=== PATIENT | female | born 1995 | race Caucasian/White ===

== ENCOUNTER 2017-09-20 08:53 | Emergency (ER) | payer OTHER, SELFPAY | END 2017-09-20 10:27 | disposition home or self-care (01) | PROVIDERS: Emergency Provider Emergency Medicine; Family Provider Family Medicine; Visit Provider Emergency Medicine | DX: M79.604 Pain in right leg (principal); Z3A.37 37 weeks gestation of pregnancy | CPT/HCPCS: 93971; 99284 ==

== ENCOUNTER 2019-01-10 09:02 | Emergency (ER) | payer OTHER, SELFPAY ==
[2019-01-10 09:05] VITALS: BP 111/87; PULSE 97; RESP 20; TEMP 36.9; O2SAT 100; BMI 23.3
--- NOTE | 2019-01-10 09:10 | DI.RAD.S_ITS ---
PROCEDURE: XR WRIST RT MIN 3V INDICATIONS: wrist pain, 4th metacarpal, hyperextension injury TECHNIQUE: 3 views of the wrist were acquired. COMPARISON: None. FINDINGS: Bones: No fractures or dislocations. No suspicious bony lesions. Scaphoid view: Scaphoid is intact. Soft tissues: No suspicious soft tissue calcifications. IMPRESSION: No gross acute right wrist fracture or dislocation. Dictated by: Keyur Tinoco M.D. on 01/10/2019 at 8:32 Approved by: Keyur Tinoco M.D. on 01/10/2019 at 8:32
--- NOTE | 2019-01-10 09:11 | ED.EXTPRO ---
HPI - Extremity Problem General Chief complaint: Extremity Injury, Upper Stated complaint: injury to right wrist x30 mins ago Time Seen by Provider: 01/10/19 09:05 Source: patient and other (friend at bedside.) Mode of arrival: ambulatory Limitations: no limitations History of Present Illness HPI Narrative: This is a 23-year-old female comes emergency department with right hand and wrist pain. Patient was playing volleyball earlier today. She states a individual spiked the volleyball very hard at her and she tried to set it with just her right hand and her hand was sort of forced into a hyper extension. Patient did not fall on it. She states that she had pain she tried to shake it out and felt sort of pins and needles. Patient states she still has little bit of pins and needles in her 3rd 4th and 5th fingers. She has discomfort if she fully extends the fingers and they are more comfortable straight. She was able to flex and bend them a little bit but they prefer to be held flexed. She denies any other injuries. She denies any prior surgeries. No allergies to medications. She has not taken anything for pain. Related Data Home Medications Medication Instructions Recorded Confirmed vit-iron fum-folic ac 1 cap PO QDAY #0 03/03/17 10/19/17 [Mynatal] Previous Rx's Medication Instructions Recorded Breast Pump - Double Electric ea #1 08/07/17 Allergies Allergy/AdvReac Type Severity Reaction Status Date / Time miconazole [From MONISTAT 3] AdvReac Mild Rash Verified 01/10/19 09:27 skin cleanser combination AdvReac Mild Redness of Verified 01/10/19 09:27 no.17 Skin [From MONISTAT 3] Review of Systems Review of Systems ROS Unobtainable: All systems reviewed & are unremarkable except as noted in HPI and below Musculoskeletal Reports system reviewed and no additional complaints, except as docu, Reports as per HPI, Denies deformity, Reports arthralgias (Right wrist), Reports limited range of motion, Denies muscle cramps, Denies muscle weakness, Denies numbness, Reports stiffness and Reports tingling Integumentary/Breasts Denies rash, Denies unusual bruising and Denies wounds Neurologic Denies focal weakness, Denies numbness and Reports tingling [facility] Medical History Herpes (Chronic 2014) Acne (Chronic 2014) 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 Father No problems noted. Grandfather Celiac disease Grandmother No problems noted. Mother Celiac disease Grandfather Heart attack Grandmother No problems noted. Sister Celiac disease Sister Celiac disease Social History number of children: 1 household members: spouse and children pets and animals: Yes (Cat) education level: college occupational status: employed seatbelt use: always helmet use: Yes water heater temp set < 120 deg: Yes working smoke detector in home: Yes fire extinguisher in home: No carbon monox detector in home: Yes firearms in home: Yes Smoking Status: Former smoker quit status: quit date established alcohol intake: never substance use type: does not use during the past year weight has: other well-balanced diet: daily or most days daily servings fruits/ve-4 caffeine: Yes (1-3 caffeine drinks per week, 1-3 soda/pop drinks per week.) eating out: 1-3 times/week 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 Alcohol: None. Social History number of children: 1 household members: spouse and children pets and animals: Yes (Cat) education level: college occupational status: employed seatbelt use: always helmet use: Yes water heater temp set < 120 deg: Yes working smoke detector in home: Yes fire extinguisher in home: No carbon monox detector in home: Yes firearms in home: Yes Smoking Status: Former smoker quit status: quit date established alcohol intake: never substance use type: does not use during the past year weight has: other well-balanced diet: daily or most days daily servings fruits/ve-4 caffeine: Yes (1-3 caffeine drinks per week, 1-3 soda/pop drinks per week.) eating out: 1-3 times/week 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 Alcohol: None. Exam Initial Vital Signs Initial Vital Signs: Vital Signs Temperature 98.4 F 01/10/19 09:05 Pulse Rate 97 H 01/10/19 09:05 Respiratory Rate 20 01/10/19 09:05 Blood Pressure 111/87 01/10/19 09:05 Pulse Oximetry 100 01/10/19 09:05 GENERAL: Alert and oriented x three, well nourished, well appearing female HEENT: Head normocephalic, atraumatic, EOMI, pupils reactive, face symmetric, moist mucous membranes NECK: Supple, full range of motion CARDIOVASCULAR: Regular rate and rhythm without murmurs, rubs or gallops. RESPIRATORY: Breath sounds equal bilaterally, no wheezes rales or rhonchi. ABDOMEN: Soft, nontender. Normoactive bowel sounds all 4 quadrants. No guarding or rebound, rigidity, no mass EXTREMITIES: no bony tenderness of wrist or above but has tenderness over the 4th metacarpal. Patient has pain with extension of 4/5th fingers, no bony tenderness of the fingers themselves. More comfortable when their fingers are flexed. Patient does have sensation in all 5 fingers to light touch, cap refill less than 2 seconds in all 5 fingers. Patient has 2+ radial pulse, no clubbing or edema noted. No ecchymosis. NEUROLOGICAL: Cranial nerves II through XII grossly intact. ambulates without issue. SKIN: Warm, dry, no petechiae, no rashes or lesions. Course Orders Ordered: ED Orders 01/10/19 09:10 XR hand RT min 3V Stat XR wrist RT min 3V Stat Discontinued Medications Ibuprofen (Advil) 800 mg PO NOW ONE Stop: 01/10/19 09:11 Last Admin: 01/10/19 09:15 Dose: 800 mg Vital Signs - 8 hr 01/10/19 09:05 01/10/19 10:04 Temperature 98.4 F Pulse Rate 97 H 66 Respiratory Rate 20 15 Blood Pressure 111/87 Blood Pressure [Left Arm] 113/67 Pulse Oximetry 100 100 MDM - Extremity (Nontraumatic) Imaging Data right hand xray: Radiologist's impression: [address] [address] XRay Report Signed Patient: Lesly Jimenez [facility]#: [id number] : 1995Acct:[id number] Age/Sex: 23 / FDate of Service: 01/10/19 Loc: ED Accession Number: [id number] Procedure: XR hand RT min 3V Ordering Provider: Britni Lemons D.O. PROCEDURE: XR HAND RT MIN 3V INDICATIONS: pain 4th metacarpal/wrist, hyperextension type injury TECHNIQUE: 3 views of the hand(s) acquired. COMPARISON: None. FINDINGS: Bones: No fractures or dislocations. Carpal bones are normally aligned. No suspicious bony lesions. Soft tissues: No suspicious soft tissue calcifications. IMPRESSION: No gross acute right hand fracture or dislocation. Dictated by: Keyur Tinoco M.D. on 01/10/2019 at 8:30 Approved by: Keyur Tinoco M.D. on 01/10/2019 at 8:31 Discharge Plan Departure Patient Disposition: Home Clinical Impression: Sprain and strain of right wrist Discharge Date/Time: 01/10/19 10:18 Interventions: ED Discharge Assessment Last Done: 01/10/19 10:18 Instructions: DI for Wrist Sprain Activity Restrictions/Additional Instructions: Follow-up with primary care in the next 7-10 days for recheck and if your symptoms are not improving for repeat imaging. You may take ibuprofen up to 800 mg every 8 hours as needed for pain, and or you may take Tylenol up to a 1000 mg every 8 hours for pain. Splint Care: Keep splint clean and dry. Elevated affected body part to decrease swelling. OK to use ice pack on the affected body part. Use for 15-20 minutes each time, for 5-6x per day. If you develop worsening pain, numbness, tingling, discoloration of the affected body part, loosen the splint by loosening the HAZEL wrap, and either see your doctor for an urgent re-assessment, or return to the Emergency Department. Return to the Emergency Department for any new or worsening symptoms. Prescriptions: No Action vit-iron fum-folic ac [Mynatal] 1 EACH capsule 1 cap PO QDAY Qty: 0 RF: 0 Breast Pump - Double Electric Qty: 1 RF: 0 Stand Alone Forms: Work Release Note
[2019-01-10] MEDS: IBUPROFEN 400 MG TABLET 800 MG PO (09:15)
[2019-01-10 10:04] VITALS: BP 113/67; PULSE 66; RESP 15; O2SAT 100
== END 2019-01-10 10:18 | disposition home or self-care (01) ==
PROVIDERS: Emergency Provider Emergency Medicine; Family Provider Family Medicine
DX: S63.501A Unspecified sprain of right wrist, initial encounter (principal); S66.911A Strain of unspecified muscle, fascia and tendon at wrist and hand level, right hand, initial encounter; X50.9XXA Other and unspecified overexertion or strenuous movements or postures, initial encounter; Y93.68 Activity, volleyball (beach) (court)
CPT/HCPCS: 29260; 73110; 73130; 99283

== ENCOUNTER 2019-04-09 08:52 | Emergency (ER) | payer OTHER, SELFPAY ==
--- NOTE | 2019-04-09 09:00 | ED_ITS ---
HPI - Headache General Chief Complaint: Headache Stated Complaint: terrible migrane Time Seen by Provider: 04/09/19 09:17 Source: patient and old records reviewed Mode of arrival: Ambulatory Limitations: no limitations History of Present Illness HPI Narrative: This is a 23-year-old female who comes in with complaint migraine patient states she is about 14 almost 15 weeks . Patient states she has had migraines in the past, she states is not the worst migraine she has ever had. Started having symptoms last night. She tried to sleep it off was unsuccessful in took 2 extra-strength Tylenol this morning about 7:00 a.m. with minimal improvement. She states it is more behind the right eye but also midline and extending a little bit back through the scalp. Patient states no fevers or chills. She does have some photophobia and loud sounds do bother her. She denies any vomiting or nausea. She denies any vision changes. She denies any numbness, weakness or other neurologic changes. She denies any chest pain or shortness of breath no other GI or urinary symptoms. She states this is her 3rd . She did not appreciated change in her migraines or frequency with her prior pregnancies. She states she gets 2 or 3 a year. Patient denies any other medical issues. Denies any prior surgeries. Denies any allergies. Patient states so far this has been uncomplicated. Related Data Home Medications Medication Instructions Recorded Confirmed vit-iron fum-folic ac 1 cap PO QDAY #0 03/03/17 03/26/19 [Mynatal] Allergies Allergy/AdvReac Type Severity Reaction Status Date / Time miconazole [From MONISTAT 3] AdvReac Mild Rash Verified 03/26/19 11:25 skin cleanser combination AdvReac Mild Redness of Verified 03/26/19 11:25 no.17 Skin [From MONISTAT 3] Review of Systems Review of Systems ROS Unobtainable: All systems reviewed & are unremarkable except as noted in HPI and below Constitutional Constitutional: Denies chills, Denies fever(s), Reports headache(s), Denies lethargy and Denies weakness Eyes Eyes: Denies blurry vision, Denies change in vision, Denies diplopia and Reports photophobia ENT Ears, Nose, Mouth, and Throat: Reports headache(s), Denies nasal congestion and Denies disequilibrium Cardiovascular Cardiovascular: Denies chest pain, Denies syncope, Denies edema, Denies dyspnea and Denies dyspnea on exertion Respiratory Respiratory: Denies chest congestion, Denies cough, Denies dyspnea and Denies dy spnea on exertion Gastrointestinal Gastrointestinal: Denies abdominal pain, Denies change in bowel habits, Denies constipation, Denies diarrhea, Denies nausea and Denies vomiting Genitourinary Genitourinary: Denies abnormal vaginal bleeding, Denies hematuria, Denies urinary frequency, Denies flank pain, Denies urinary incontinence, Denies urinary urgency, Denies vaginal discharge and Reports other (. 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 Father No problems noted. Grandfather Celiac disease Grandmother Cancer Mother Celiac disease Cancer Grandfather Heart attack Grandmother No problems noted. Sister Celiac disease Sister Celiac disease Social History marital status: number of children: 1 household members: spouse and children pets and animals: Yes (Cat) education level: college occupational status: employed seatbelt use: always helmet use: Yes water heater temp set < 120 deg: Yes working smoke detector in home: Yes fire extinguisher in home: No carbon monox detector in home: Yes firearms in home: Yes firearms unloaded and locked: Yes Smoking Status: Former smoker quit status: quit date established alcohol intake: never substance use type: does not use during the past year weight has: other well-balanced diet: daily or most days daily servings fruits/ve-4 caffeine: Yes (1-3 caffeine drinks per week, 1-3 soda/pop drinks per week.) eating out: 1-3 times/week Type(s) of exercise: additional additional 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 Alcohol: None. alcohol intake frequency: 0-2 drinks per day Substance Use Type: does not use Exam Narrative Exam Narrative: GEN: well nourished, well appearing female, alert and oriented x 3, patient appears to be in mild distress. HEENT: Atraumatic, pupils are equal round reactive to light, positive photophobia, no nystagmus, extraocular movements are intact, nares are clear, TMs are clear with no fluid, there is no conjunctival pallor. Throat is clear without any exudates, erythema, tonsillar enlargement or uvular deviation, facial droop. No dysarthria. HEART: Regular rate and rhythm without murmur, clicks, rubs. LUNGS:Lungs clear to auscultation, no wheezes, rales, crackles, chest moves symmetrically ABD:bowel sounds normal, soft, non-tender, no guarding, rebound, rigidity, no masses noted, no hepatosplenomegaly :No CVA tenderness MSCL: Non-tender, no muscle atrophy, muscles strength 5/5 upper and lower extremities, full range of motion NEURO:CN 2-12 intact, sensation normal, normal gait. Initial Vital Signs Initial Vital Signs: Vital Signs Temperature 97.6 F 04/09/19 09:03 Pulse Rate 89 04/09/19 09:03 Respiratory Rate 12 04/09/19 09:03 Blood Pressure 115/66 04/09/19 09:03 Pulse Oximetry 99 04/09/19 09:03 Course Orders Ordered: Discontinued Medications Sodium Chloride (Normal Saline 0.9%) 1,000 mls @ 1,000 mls/hr IV BOLUS ONE Stop: 04/09/19 10:28 Last Infusion: 04/09/19 11:17 Dose: 0 mls/hr Documented by: Admin: 04/09/19 10:00 Dose: 1,000 mls/hr Documented by: BI Metoclopramide HCl (Reglan) 10 mg IV NOW ONE Stop: 04/09/19 09:30 Last Admin: 04/09/19 10:01 Dose: 10 mg Documented by: BTONER Vital Signs Vital signs: Vital Signs - 8 hr 04/09/19 11:31 Pulse Rate 85 Respiratory Rate 18 Blood Pressure 93/61 Pulse Oximetry 99 MDM - Headache MDM Narrative Medical decision making narrative: Discussed with patient we will try 1 L of fluids, O2 via nasal cannula and a dose of Reglan and see if this improves her symptoms. We discussed were somewhat restricted regarding her but also because she drove herself today. Patient states that this is fairly typical of her migraines in the family not the worst that she has had compared to priors. She states she has only had to come to the ER once before for migraine. Patient is feeling much better in the department and would like to return home. Discharge Plan Departure Patient Disposition: Home Clinical Impression: Migraine, Discharge Date/Time: 04/09/19 11:31 Instructions: DI for Migraine Activity Restrictions/Additional Instructions: Follow-up with primary care in the next 2-3 days for recheck if her symptoms have not completely resolved. You may continue Tylenol up to a 1000 mg every 8 hours as needed. Make sure you stay hydrated and drink plenty of fluids throughout the day. Do your best to get 8 hours of sleep daily. Return to the emergency department for fevers greater 100.4 F, rapidly worsening symptoms, passing out, new vision changes, persistent vomiting, new swelling in her lower extremities, increased reflexes or hyper reflexive or other new or concerning symptoms. Prescriptions: No Action vit-iron fum-folic ac [Mynatal] 1 EACH capsule 1 cap PO QDAY Qty: 0 RF: 0 Referrals: Hedy Neville MD [Family Provider] - Stand Alone Forms: Work Release Note
[2019-04-09 09:03] VITALS: BP 115/66; PULSE 89; RESP 12; TEMP 36.4; O2SAT 99
--- NOTE | 2019-04-09 09:42 | PC.NURSE ---
Gave patient cold washcloth to place on her eyes
[2019-04-09] MEDS: SODIUM CHLORIDE 0.9% 1,000 ML 1000 ML IV (10:00)
[2019-04-09] MEDS: METOCLOPRAMIDE 10 MG/2 ML INJ IV (10:01)
[2019-04-09 11:31] VITALS: BP 93/61; PULSE 85; RESP 18; O2SAT 99
== END 2019-04-09 11:31 | disposition home or self-care (01) ==
PROVIDERS: Emergency Provider Emergency Medicine; Family Provider Family Medicine
DX: G43.909 Migraine, unspecified, not intractable, without status migrainosus (principal); Z3A.14 14 weeks gestation of pregnancy
CPT/HCPCS: 96361; 96374; 99283; 99284; J2765

== ENCOUNTER → 2019-04-29 11:50 | Outpatient (CLI) | payer OTHER, SELFPAY ==
[2019-04-29 12:26] LABS: Add Manual Diff / Slide Review NO; Basophils Absolute Auto 0 /uL (0-100); Basophils Percent Auto 0.4 % (0-2); Eosinophils Absolute Auto 100 /uL (0-450); Eosinophils Percent Auto 0.8 % (2-4); Hematocrit 34.7 % (36-46); Hemoglobin 12.2 g/dL (12.0-16.0); Lymphocytes Absolute Auto 2100 /uL (1100-4500); Lymphocytes Percent Auto 28.4 % (25-40); Mean Corpuscular HGB Conc 35.2 % (30-36); Mean Corpuscular Hemoglobin 30.8 PG (26-34); Mean Corpuscular Volume 87.5 fL (80-100); Monocytes Absolute Auto 500 /uL (0-900); Monocytes Percent Auto 7.1 % (3-14); Neutrophils Absolute Auto 4700 /uL (1500-7000); Neutrophils Percent Auto 63.3 % (50-75); Platelet Count 299 X10^3/uL (150-400); Red Blood Cell Count 3.97 X10^6/uL (4.0-5.2); Red Cell Distribution Width 13.3 % (11.6-14.8); White Blood Cell Count 7.4 X10^3/uL (4.5-11.0)
[2019-04-29 16:14] LABS: Hepatitis B Surface Antigen NEGATIVE s/c (NEGATIVE); Rubella Antibody IgG 25.8 IU/mL (>15)
[2019-04-29 16:39] LABS: HIV 1 & 2 Ab/Ag 4th Gen Combo NEGATIVE (NEGATIVE); Hep C Virus Ab w/Reflex Quant NEGATIVE s/c (NEGATIVE)
[2019-05-01 20:05] LABS: RPR Screen Nonreactive (Nonreactive)
[2019-05-03 16:21] LABS: AFP, Serum 42.6 ng/mL; Brief History NTD NG; Calc Gestational Age 17.7; Cigarette Smoker NO; Collection Date 112519; Donated Egg NO; Donor Egg Age NO; Estriol, Free 0.13 ng/mL; Inhibin A, Dimeric 99 pg/mL; Maternal Weight 156 lbs; Number of Fetuses 1; Previous Pregnancy Down Syndro NO; hCG, MoM 0.49; hCG, Serum 12.1 IU/mL
== END ==
PROVIDERS: PCP Family Medicine; Visit Provider Family Medicine
DX: Z34.82 Encounter for supervision of other normal pregnancy, second trimester (principal); Z3A.17 17 weeks gestation of pregnancy
CPT/HCPCS: 36415; 80055; 82105; 82677; 84702; 86336; 86787; 86803; 86850; 86900; 86901; 87389

== ENCOUNTER 2019-04-30 21:06 | Emergency (ER) | payer OTHER, SELFPAY ==
[2019-04-30 21:35] VITALS: BP 104/70; PULSE 95; RESP 18; TEMP 37.3; O2SAT 98; BMI 56.8
[2019-04-30] MEDS: SODIUM CHLORIDE 0.9% 1,000 ML 1000 ML IV (21:44)
[2019-04-30] MEDS: ONDANSETRON 4 MG/2 ML INJ IV (21:44)
[2019-04-30 21:54] LABS: Add Manual Diff / Slide Review NO; Basophils Absolute Auto 0 /uL (0-100); Basophils Percent Auto 0.4 % (0-2); Eosinophils Absolute Auto 0 /uL (0-450); Eosinophils Percent Auto 0.5 % (2-4); Hematocrit 37.9 % (36-46); Hemoglobin 13.4 g/dL (12.0-16.0); Lymphocytes Absolute Auto 1000 /uL (1100-4500); Lymphocytes Percent Auto 10.6 % (25-40); Mean Corpuscular HGB Conc 35.3 % (30-36); Mean Corpuscular Volume 87.7 fL (80-100); Monocytes Absolute Auto 500 /uL (0-900); Neutrophils Absolute Auto 7500 /uL (1500-7000); Neutrophils Percent Auto 83.5 % (50-75); Platelet Count 280 X10^3/uL (150-400); Red Blood Cell Count 4.32 X10^6/uL (4.0-5.2); Red Cell Distribution Width 13.2 % (11.6-14.8)
[2019-04-30 21:57] LABS: Alanine Aminotransferase 12 IU/L (<35); Albumin 4.3 g/dL (3.5-5.0); Albumin Globulin Ratio 1.3 (1.0-2.8); Alkaline Phosphatase 52 U/L (38-126); Aspartate Aminotransferase 17 IU/L (14-36); Bilirubin Total 1.4 mg/dL (0.2-1.3); Blood Urea Nitrogen 11 mg/dL (7-17); Calcium 9.3 mg/dL (8.4-10.2); Carbon Dioxide 22 mmol/L (22-32); Chloride 104 mmol/L (98-107); Estimated Glomerular Filt Rate > 60.0 mL/min (>60); Globulin 3.3 g/dL (1.7-4.1); Glucose 108 mg/dL (70-100); HEMOLYSIS < 15 (0-50); Lipase 81 U/L (23-300); Potassium 3.7 mmol/L (3.4-5.1); Sodium 136 mmol/L (137-145); Total Protein 7.6 g/dL (6.3-8.2)
[2019-04-30 22:30] VITALS: BP 105/72; PULSE 88; RESP 16; O2SAT 100
--- NOTE | 2019-04-30 22:49 | ED.NAVMDI ---
HPI - Nausea/Vomiting/Diarrhea General Chief complaint: Nausea/Vomiting/Diarrhea Stated complaint: STATES FLU SYMPTOMS, 18 WEEKS Time Seen by Provider: 04/30/19 22:49 Source: patient and old records reviewed Mode of arrival: Ambulatory Limitations: no limitations History of Present Illness HPI Narrative: This is a 23-year-old female comes to the emergency department with complaint of nausea and vomiting that started this afternoon patient states she has some Gino food at about 11 about 2:00 a.m. this afternoon she had sudden onset of nausea and vomiting. she states her only pain was feeling like there was a hot about 20 minutes before she would vomit in her epigastric area and then she would throw up and it would resolve. She had 2 episodes of diarrhea like stools no black or blood in her stool. She denies any cramping. She denies any other abdominal pain. She denies any frequency dysuria or urgency. She denies any vaginal discharge or bleeding. She denies any pelvic cramping. She felt chilled earlier but no fevers. Patient denies any chest pain or shortness of breath. She is 18 weeks . She states she had felt much movement initially but has felt some today. She denies any flank or back pain. She denies any other issues besides migraines which have increased with frequency during her but not think it is related today and is not complaining of a migraine today. She states otherwise healthy. She states that the other people she ate with have not been ill but they ate different meals. Related Data Home Medications Medication Instructions Recorded Confirmed vit-iron fum-folic ac 1 cap PO QDAY #0 03/03/17 04/29/19 [Mynatal] Allergies Allergy/AdvReac Type Severity Reaction Status Date / Time miconazole [From MONISTAT 3] AdvReac Mild Rash Verified 04/29/19 11:22 skin cleanser combination AdvReac Mild Redness of Verified 04/29/19 11:22 no.17 Skin [From MONISTAT 3] Review of Systems Review of Systems ROS Unobtainable: All systems reviewed & are unremarkable except as noted in HPI and below Patient History Social History marital status: number of children: 1 household members: spouse and children pets and animals: Yes (Cat) education level: college occupational status: employed seatbelt use: always helmet use: Yes water heater temp set < 120 deg: Yes working smoke detector in home: Yes fire extinguisher in home: No carbon monox detector in home: Yes firearms in home: Yes firearms unloaded and locked: Yes Smoking Status: Former smoker quit status: quit date established alcohol intake: never substance use type: does not use during the past year weight has: other well-balanced diet: daily or most days daily servings fruits/ve-4 caffeine: Yes (1-3 caffeine drinks per week, 1-3 soda/pop drinks per week.) eating out: 1-3 times/week Type(s) of exercise: additional additional social history: 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 Alcohol: None. alcohol intake frequency: 0-2 drinks per day Substance Use Type: does not use Exam Narrative Exam Narrative: GENERAL: Alert and oriented x three, well-nourished, well-appearing female in no acute distress. HEENT: Head normocephalic, atraumatic, EOMI, pupils reactive, face symmetric, moist mucous membranes NECK: Supple, full range of motion CARDIOVASCULAR: Regular rate and rhythm without murmurs, rubs or gallops. RESPIRATORY: Breath sounds equal bilaterally, no wheezes rales or rhonchi. ABDOMEN: Soft, nontender. gravid. Normoactive bowel sounds all 4 quadrants. No guarding or rebound, rigidity, no mass : No CVA tenderness EXTREMITIES: Normal range of motion, no clubbing or edema. Neurovascularly intact NEUROLOGICAL: Cranial nerves II through XII grossly intact. Moving all extremities SKIN: Warm, dry, no petechiae, no rashes or lesions. Initial Vital Signs Initial Vital Signs: Vital Signs Temperature 99.2 F 04/30/19 21:35 Pulse Rate 95 H 04/30/19 21:35 Respiratory Rate 18 04/30/19 21:35 Blood Pressure 104/70 04/30/19 21:35 Pulse Oximetry 98 04/30/19 21:35 Course Orders Ordered: ED Orders 04/30/19 21:30 Complete Blood Count AUTO DIFF Stat Comprehensive Metabolic Panel Stat Ictotest Urine Stat Lipase Stat Urine Culture Stat Urine Microscopic Stat Discontinued Medications Sodium Chloride (Normal Saline 0.9%) 1,000 mls @ 1,000 mls/hr IV BOLUS ONE Stop: 04/30/19 22:22 Last Infusion: 04/30/19 22:15 Dose: 1,000 mls/hr Documented by: Admin: 04/30/19 21:44 Dose: 1,000 mls/hr Documented by: JAZZMINE Ondansetron HCl (Zofran) 4 mg IV NOW ONE Stop: 04/30/19 21:24 Last Admin: 04/30/19 21:44 Dose: 4 mg Documented by: JAZZMINE Ondansetron HCl (Zofran Odt Prepack) 1 bottle MISC SEEINSTR ONE Stop: 04/30/19 23:09 Last Admin: 04/30/19 23:20 Dose: 1 bottle Documented by: JAZZMINE Vital Signs Vital signs: Vital Signs - 8 hr 04/30/19 21:35 04/30/19 22:30 Temperature 99.2 F Pulse Rate 95 H 88 Respiratory Rate 18 16 Blood Pressure 104/70 Blood Pressure [Left Arm] 105/72 Pulse Oximetry 98 100 MDM - Nausea/Vomiting/Diarrhea Lab Data Attestation: I reviewed the patient's lab results. Result diagrams: 04/30/19 21:30 04/30/19 21:30 Labs: Lab Results 04/30/19 04/30/19 04/30/19 Range/Units 21:30 21:30 21:30 WBC 9.0 (4.5-11.0) X10^3/uL RBC 4.32 (4.0-5.2) X10^6/uL Hgb 13.4 (12.0-16.0) g/dL Hct 37.9 (36-46) % MCV 87.7 (80-100) fL MCH 31.0 (26-34) PG MCHC 35.3 (30-36) % RDW 13.2 (11.6-14.8) % Plt Count 280 (150-400) X10^3/uL Neut % (Auto) 83.5 H D (50-75) % Lymph % (Auto) 10.6 L (25-40) % [place] % (Auto) 5.0 (3-14) % Eos % (Auto) 0.5 L (2-4) % Baso % (Auto) 0.4 (0-2) % Neut # (Auto) 7500 H (5952-9719) /uL Lymph # (Auto) 1000 L (1704-9610) /uL [place] # (Auto) 500 (0-900) /uL Eos # (Auto) 0 (0-450) /uL Baso # (Auto) 0 (0-100) /uL Sodium 136 L (137-145) mmol/L Potassium 3.7 (3.4-5.1) mmol/L Chloride 104 (98-107) mmol/L Carbon Dioxide 22 (22-32) mmol/L BUN 11 (7-17) mg/dL Creatinine 0.50 L (0.52-1.04) mg/dL Estimated GFR > 60.0 (>60) mL/min BUN/Creatinine Ratio 22.0 (6-22) Glucose 108 H (70-100) mg/dL Calcium 9.3 (8.4-10.2) mg/dL Total Bilirubin 1.4 H (0.2-1.3) mg/dL AST 17 (14-36) IU/L ALT 12 (<35) IU/L Alkaline Phosphatase 52 (38-126) U/L Total Protein 7.6 (6.3-8.2) g/dL Albumin 4.3 (3.5-5.0) g/dL Globulin 3.3 (1.7-4.1) g/dL Albumin/Globulin Ratio 1.3 (1.0-2.8) Lipase 81 (23-300) U/L Urine Ictotest Negative (Negative) Urine RBC None seen (0-5/HPF) Urine WBC 1-5/hpf (0-5/HPF) Ur Squamous Epith Cells 1-5 /hpf D (0-5/HPF) Amorphous Sediment 4+ Urine Bacteria Many (>30) H (None) Ur Culture Indicated? Specimen cultured Point of Care Testing Test Results Positive Urine Dip Bedside Urine Glucose Negative Bedside Urine Bilirubin ++ 2 Bedside Urine Ketone ++ 40 Urine Specific [place] 1.025 Bedside Urine Occult Blood - Negative Bedside Urine pH 6.0 Bedside Urine Protein + 30 Bedside Urine Urobilinogen - Negative Bedside Urine Nitrite - Negative Bedside Urine Leukocytes + 70 Esterase MDM Narrative Medical decision making narrative: Patient received a 0.5 L of fluids, she states the IV was irritating her so they took it out and she has been orally hydrating in the department. She states she is feeling much better and has not been having any more emesis while in the emergency department. Her CBC, CMP and lipase do not show any major abnormalities. Urine shows ketones consistent with some dehydration. Patient does have some leukocyte esterase we discussed waiting for urine culture but that she may need to be started on antibiotics positive especially given she is . Patient was comfortable waiting for the culture. She has not had any UTI or flank pain that would be consistent with a pyelo. Patient feels comfortable returning home. Discharge Plan Departure Patient Disposition: Home Clinical Impression: Nausea vomiting and diarrhea, Discharge Date/Time: 04/30/19 23:15 Instructions: DI for Vomiting -- Adult Activity Restrictions/Additional Instructions: Follow-up with your physician in the next several days if your symptoms have not completely resolved. You may take Zofran 1 tablet every 6 hours as needed for nausea. Continue to slowly orally hydrate with small sips of fluid and ice chips. You may try some luke andrea or Gatorade of helpful. I would recommend advancing your diet as tolerated tomorrow. Return to the emergency department for fevers good 100.4 F, persistent vomiting, signs of dehydration, black or bloody stools, new abdominal pain, cramping, vaginal bleeding. Lightheadedness or passing-out or other new or concerning symptoms. Prescriptions: No Action vit-iron fum-folic ac [Mynatal] 1 EACH capsule 1 cap PO QDAY Qty: 0 RF: 0 Referrals: Hedy Neville MD [Primary Care Provider] - Stand Alone Forms: Work Release Note
[2019-04-30 23:07] LABS: RBC Urine None Seen (0-5/HPF)
[2019-04-30] MEDS: ONDANSETRON 4 MG ODT PREPACK 1 BOTTLE MISC (23:20)
[2019-04-30 23:23] LABS: Ictotest Urine Negative (Negative)
[2019-04-30 23:25] LABS: Bacteria Urine Many (>30); Squamous Epithelial Cell Urine 1-5 /HPF (0-5/HPF); WBC Urine 1-5/HPF (0-5/HPF)
[2019-04-30 23:26] LABS: Amorphous Sediment Urine 4+; Culture Indicated Urine Specimen Cultured
== END 2019-04-30 23:15 | disposition home or self-care (01) ==
PROVIDERS: Emergency Provider Emergency Medicine; Family Provider Family Medicine; PCP Family Medicine
DX: O21.9 Vomiting of pregnancy, unspecified (principal); R19.7 Diarrhea, unspecified; O21.0 Mild hyperemesis gravidarum; Z3A.18 18 weeks gestation of pregnancy
CPT/HCPCS: 36415; 80053; 81003; 81015; 81025; 83690; 85025; 87086; 96361; 96374; 99283; 99284; J2405

== ENCOUNTER 2019-06-22 13:42 | Outpatient (CLI) | payer OTHER, SELFPAY | END 2019-06-22 15:05 | disposition home or self-care (01) | LOC: OB 06-24 15:16 | PROVIDERS: Family Provider Family Medicine; PCP Family Medicine; Visit Provider Family Medicine | DX: O26.892 Other specified pregnancy related conditions, second trimester (principal); R10.9 Unspecified abdominal pain; W19.XXXA Unspecified fall, initial encounter; Z3A.25 25 weeks gestation of pregnancy | CPT/HCPCS: 59025; G0378; G0379 ==

== ENCOUNTER → 2019-06-28 13:56 | Outpatient (CLI) | payer OTHER, SELFPAY ==
[2019-06-28 17:28] LABS: GTT (PREG) 1 Hour PP 50gm Dose 138 mg/dL (76-139)
== END ==
PROVIDERS: Family Provider Family Medicine; PCP Family Medicine; Visit Provider Family Medicine
DX: Z34.82 Encounter for supervision of other normal pregnancy, second trimester (principal); Z3A.26 26 weeks gestation of pregnancy
CPT/HCPCS: 82950

== ENCOUNTER 2019-08-01 21:38 | Outpatient (CLI) | payer OTHER, SELFPAY | END 2019-08-01 22:10 | disposition home or self-care (01) | LOC: OB 08-02 08:45 | PROVIDERS: Family Provider Family Medicine; PCP Family Medicine; Referring Provider Family Medicine; Visit Provider Family Medicine | DX: O26.893 Other specified pregnancy related conditions, third trimester (principal); R42 Dizziness and giddiness; H53.483 Generalized contraction of visual field, bilateral | CPT/HCPCS: 59025; G0378; G0379 ==

== ENCOUNTER 2019-08-01 22:04 | Observation (INO) | payer OTHER, SELFPAY ==
[2019-08-01 22:05] VITALS: BP 127/75; PULSE 97; RESP 20; TEMP 36.8; O2SAT 100
--- NOTE | 2019-08-01 22:34 | ED.NEUROSD ---
HPI - Neuro Symptoms/Deficit General Chief Complaint: Neuro Symptoms/Deficit Stated Complaint: r/o stroke Time Seen by Provider: 08/01/19 22:34 Source: patient Mode of arrival: Wheelchair History of Present Illness HPI Narrative: 23-year-old otherwise healthy at 31 weeks gestation presents with concerns for headache an acute neurologic sent symptoms starting at 8:00 p.m. tonight. She noted initially a tunnel vision type phenomenon with black at the edges of her peripheral vision and spots centrally did not improve with sitting down or additional hydration and was associated with a headache. Headache which her entire head and entire visual field left and right was affected. She then noticed that she had some difficulty comprehending written words and had difficulty in texting her that she was concerned that there were problems developing. Shortly after that her grandmother was present and she felt that she had trouble finding words to express her concerns and her grandmother agreed that her speech fluency was not usual. She describes no headaches is otherwise going well no recent illness, no fever, cough chills, abdominal pain, lower extremity edema no palpitations no chest pain and no dyspnea. She was initially seen in L&D was evaluated felt to be appropriate and she was sent to the emergency room for further evaluation of the neurologic findings. On Anticoagulants: No Related Data Home Medications Medication Instructions Recorded Confirmed Mynatal 1 cap PO QDAY #0 03/03/17 08/02/19 Allergies Allergy/AdvReac Type Severity Reaction Status Date / Time miconazole [From MONISTAT 3] AdvReac Mild Rash Verified 08/01/19 22:18 skin cleanser combination AdvReac Mild Redness of Verified 08/01/19 22:18 no.17 Skin [From MONISTAT 3] Review of Systems Review of Systems Narrative: Gravid uterus, intermittent lower extremity edema, frequent urination, mild back pain Remainder of review is otherwise unremarkable Patient History Social History marital status: number of children: 1 household members: spouse and children pets and animals: Yes (Cat) education level: college occupational status: employed seatbelt use: always helmet use: Yes water heater temp set < 120 deg: Yes working smoke detector in home: Yes fire extinguisher in home: No carbon monox detector in home: Yes firearms in home: Yes firearms unloaded and locked: Yes Smoking Status: Former smoker quit status: quit date established alcohol intake: never substance use type: does not use during the past year weight has: other well-balanced diet: daily or most days daily servings fruits/ve-4 caffeine: Yes (1-3 caffeine drinks per week, 1-3 soda/pop drinks per week.) eating out: 1-3 times/week Type(s) of exercise: additional additional 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 Alcohol: None. Smoking Status: Former smoker alcohol intake frequency: 0-2 drinks per day Substance Use Type: does not use Exam Narrative Exam Narrative: General: Healthy appearing, in no acute distress. Able to give a complete and coherent history. Well-nourished well-developed HEENT: Moist mucous membranes, normal sclera with reactive pupils, normal and full peripheral vision field exam Neck: No JVD, supple Respiratory: Lungs are clear to auscultation, no wheezing no rales no rhonchi. Full and symmetrical air movement Cardiac: Regular rate and rhythm no murmurs no bruits Abdomen: Soft nontender, gravid, good bowel tones, no flank pain (normal heart tones documented in labor and delivery prior to arrival in the emergency department) Skin: Warm and dry, no rashes Neurologic: Grossly neurologically intact with no obvious asymmetries or abnormalities, fluent speech, Extremities: No trauma, well perfused Psych: Cooperative, appropriate insight and affect Initial Vital Signs Initial Vital Signs: Vital Signs Temperature 98.2 F 08/01/19 22:05 Pulse Rate 97 H 08/01/19 22:05 Respiratory Rate 20 08/01/19 22:05 Blood Pressure 127/75 08/01/19 22:05 Pulse Oximetry 100 08/01/19 22:05 Course Orders Ordered: ED Orders 08/01/19 22:20 Complete Blood Count AUTO DIFF Stat Comprehensive Metabolic Panel Stat 08/02/19 00:57 Education, smoking cessation ONGOING Acetaminophen (Tylenol) 650 mg PO Q6HR PRN PRN Reason: Fever/Mild Pain (1-3) Naloxone HCl (Narcan) 0.2 mg IV Q2MIN PRN PRN Reason: Opiate Reversal Discontinued Medications Sodium Chloride (Normal Saline 0.9%) 1,000 mls @ 150 mls/hr IV CONT TROY Last Infusion: 08/02/19 00:35 Dose: 150 mls/hr Documented by: Admin: 08/01/19 23:10 Dose: 150 mls/hr Documented by: JAZZMINE Potassium Chloride (Klor-Con M20) 40 meq PO NOW ONE Stop: 08/02/19 01:12 Vital Signs Vital signs: Vital Signs - 8 hr 08/01/19 22:05 Temperature 98.2 F Pulse Rate 97 H Respiratory Rate 20 Blood Pressure 127/75 Pulse Oximetry 100 MDM - Neuro Symptoms/Deficit Lab Data Result diagrams: 08/01/19 22:20 08/01/19 22:20 Labs: Lab Results 08/01/19 08/01/19 Range/Units 22:20 22:20 WBC 9.9 (4.5-11.0) X10^3/uL RBC 3.78 L (4.0-5.2) X10^6/uL Hgb 11.0 L (12.0-16.0) g/dL Hct 32.4 L (36-46) % MCV 85.7 (80-100) fL MCH 29.2 (26-34) PG MCHC 34.0 (30-36) % RDW 12.9 (11.6-14.8) % Plt Count 338 (150-400) X10^3/uL Neut % (Auto) 53.8 (50-75) % Lymph % (Auto) 31.8 (25-40) % [place] % (Auto) 11.8 (3-14) % Eos % (Auto) 2.1 (2-4) % Baso % (Auto) 0.5 (0-2) % Neut # (Auto) 5300 (4933-9579) /uL Lymph # (Auto) 3100 (4189-8761) /uL [place] # (Auto) 1200 H (0-900) /uL Eos # (Auto) 200 (0-450) /uL Baso # (Auto) 100 (0-100) /uL Sodium 140 (137-145) mmol/L Potassium 2.8 L (3.4-5.1) mmol/L Chloride 119 H (98-107) mmol/L Carbon Dioxide 17 L (22-32) mmol/L BUN 7 (7-17) mg/dL Creatinine 0.50 L (0.52-1.04) mg/dL Estimated GFR > 60.0 (>60) mL/min BUN/Creatinine Ratio 14.0 (6-22) Glucose 77 (70-100) mg/dL Calcium 6.5 L (8.4-10.2) mg/dL Total Bilirubin 0.5 (0.2-1.3) mg/dL AST 16 (14-36) IU/L ALT 11 (<35) IU/L Alkaline Phosphatase 55 (38-126) U/L Total Protein 5.3 L (6.3-8.2) g/dL Albumin 2.5 L (3.5-5.0) g/dL Globulin 2.8 (1.7-4.1) g/dL Albumin/Globulin Ratio 0.9 L (1.0-2.8) MDM Narrative Medical decision making narrative: 10:33 pm his care is reviewed with Dr. Brown, stroke neurologist [facility]. He too agrees that this is likely going to end up being a migraine variant, however at 32 weeks , she is in a hypercoagulable state and stroke as well as dural sinus thrombus are well with and differential. She is asymptomatic aside from mild headache at this time. Dr. Brown's recommendation for workup includes an MRI of the brain without, MRA head and neck and an MR venogram. As we have absolutely no capacity for MR tonight, will review with him the time sensitive nature and see if she needs to be transferred or if were able to admit her overnight and do MR 1st thing in the morning. Given the fact that she is asymptomatic now, he feels that hospital observation with close neurologic checks over the evening and MRI studies 1st thing in the morning is safe and appropriate. 1045pm care is reviewed with Dr. Christie. He will admit the patient overnight for observation, neurologic checks with MRI studies 1st thing in the morning. Patient is agreeable to this plan as well. Discharge Plan Departure Patient Disposition: Admitted as Observation Clinical Impression: Brain TIA, Acute hypokalemia Qualifiers: Weeks of gestation: 31 weeks Qualified Code(s): Z3A.31 - 31 weeks gestation of Referrals: Hedy Neville MD [Primary Care Provider] - Admit Date/Time: 08/01/19 23:00 Admit Provider: Shaw Christie
--- NOTE | 2019-08-01 22:37 | PC.NURSE ---
2230 Pt brought from center, 31 weeks with 3rd pregnanacy reports slight headache, visual disturbances, and states was having a hard time reading and finding words at 1999, symptoms are now resolving and pt states only a slight ZAZUETA remains. in room assessing pt.
[2019-08-01 23:08] LABS: Add Manual Diff / Slide Review NO; Basophils Absolute Auto 100 /uL (0-100); Basophils Percent Auto 0.5 % (0-2); Eosinophils Absolute Auto 200 /uL (0-450); Eosinophils Percent Auto 2.1 % (2-4); Hematocrit 32.4 % (36-46); Lymphocytes Absolute Auto 3100 /uL (1100-4500); Lymphocytes Percent Auto 31.8 % (25-40); Mean Corpuscular Hemoglobin 29.2 PG (26-34); Mean Corpuscular Volume 85.7 fL (80-100); Monocytes Absolute Auto 1200 /uL (0-900); Monocytes Percent Auto 11.8 % (3-14); Neutrophils Absolute Auto 5300 /uL (1500-7000); Neutrophils Percent Auto 53.8 % (50-75); Platelet Count 338 X10^3/uL (150-400); Red Blood Cell Count 3.78 X10^6/uL (4.0-5.2); Red Cell Distribution Width 12.9 % (11.6-14.8); White Blood Cell Count 9.9 X10^3/uL (4.5-11.0)
[2019-08-01] MEDS: SODIUM CHLORIDE 0.9% 1,000 ML 150 ML IV (23:10)
[2019-08-01 23:14] LABS: Alanine Aminotransferase 11 IU/L (<35); Albumin 2.5 g/dL (3.5-5.0); Albumin Globulin Ratio 0.9 (1.0-2.8); Alkaline Phosphatase 55 U/L (38-126); Aspartate Aminotransferase 16 IU/L (14-36); Bilirubin Total 0.5 mg/dL (0.2-1.3); Blood Urea Nitrogen 7 mg/dL (7-17); Calcium 6.5 mg/dL (8.4-10.2); Carbon Dioxide 17 mmol/L (22-32); Chloride 119 mmol/L (98-107); Estimated Glomerular Filt Rate > 60.0 mL/min (>60); Globulin 2.8 g/dL (1.7-4.1); Glucose 77 mg/dL (70-100); HEMOLYSIS < 15 (0-50); Potassium 2.8 mmol/L (3.4-5.1); Sodium 140 mmol/L (137-145); Total Protein 5.3 g/dL (6.3-8.2)
[2019-08-01 23:15] VITALS: BP 111/60; PULSE 95; RESP 23; O2SAT 98
[2019-08-02] VITALS: BP 104/64; PULSE 92; RESP 22; O2SAT 97
[2019-08-02 00:50] VITALS: BP 113/69; PULSE 90; RESP 18; TEMP 36.9; O2SAT 99
[2019-08-02 01:01] VITALS: BMI 29.0
[2019-08-02] MEDS: POTASSIUM CHLORIDE 20 MEQ TAB 40 MEQ PO (01:31)
[2019-08-02 06:03] VITALS: BP 108/70; PULSE 86; RESP 17; TEMP 37; O2SAT 98
--- NOTE | 2019-08-02 08:16 | PM.HP.1 ---
History of Present Illness History of Present Illness Date Patient Seen: 08/02/19 Time Patient Seen: 08:00 Chief complaint: r/o stroke Narrative: The pt is a previously healthy 23yo at 31w2d who presented with vision changes and poor cognition. The pt reports that yesterday she ate a lot of sugar all at once, finishing her children's treats. Approximately 20 minutes later, she started to develop blurry vision at the periphery of her visual johnson. This progressed to full darkness at the periphery with complete tunnel vision, in addition to dark spots floating in her vision. She thought it was due to eating too much sugar, and tried to ignore it. She was then reading the news, and felt she couldn't comprehend what she was reading. She kept reading the same paragraph over and over again. The pt started texting her , and when she went back to read the texts states it looked like she was drunk because the words were in the wrong order and it didn't make any sense. This persisted. She was then talking with her grandmother, and had a very difficult time finding the right words to say. Due to the severity of the symptoms, she came to the hospital for evaluation. The pt was first evaluated in L&D, where she had a reactive NST. She was then sent to the ER, where lab work was unrevealing. Her blood pressure was in normal range. Her symptoms resolved completely while she was in the ER. Her case was discussed with [facility], who recommended non-emergent MRI head in addition to MRA and MRV to r/o stroke and dural sinus thrombus. Based on presentation, most likely complex migraine, however. The pt was admitted for neurological monitoring and imaging. This morning, the pt reports no return of her symptoms. She denies any vision changes or cognitive changes. She denies every having and focal weakness or difficulty speaking when her symptoms occurred. She was able to drive herself to the hospital. She has a very mild headache this morning. She would like to return home this morning. Patient History Family & Social History Social History: household members spouse,children Prior Living Arrangements House Safety & Behavioral: Feels Safe in Current Yes Environment Been Physically Hurt or No Threatened By a Person Suicidal Ideation Description None Tobacco & Substance use: Tobacco type cigarettes Smoking Status Former smoker alcohol intake never alcohol intake frequency 0-2 drinks per day Substance Use Type does not use Meds Home Medications and Allergies Home Medications Medication Instructions Recorded Confirmed Type Mynatal 1 cap PO QDAY #0 03/03/17 08/02/19 History Allergies Allergy/AdvReac Type Severity Reaction Status Date / Time miconazole [From MONISTAT 3] AdvReac Mild Rash Verified 08/01/19 22:18 skin cleanser combination AdvReac Mild Redness of Verified 08/01/19 22:18 no.17 Skin [From MONISTAT 3] Exam Vital Signs (past 8 hours): - 08/02/19 00:50 08/02/19 06:03 Temperature 98.4 F 98.6 F Pulse Rate 90 86 Respiratory Rate 18 17 Blood Pressure 113/69 108/70 Pulse Oximetry 99 98 Oxygen Delivery Method Room Air Oxygen Flow Rate 0 Narrative Exam Narrative: GEN - alert, cooperative and no distress HEENT - normocephalic and atraumatic, sclera white, moist mucus membranes NECK - FROM, no adenopathy, Thyroid is not enlarged, no JVD HEART - RRR, S1, S2 normal, no S3 or S4, no murmurs LUNGS - symmetric chest rise, no accessory muscles, clear to auscultation bilaterally ABD - flat, nondistended, normal bowel sounds, soft, nontender and no hepatomegaly, splenomegaly or masses EXT - no cyanosis, clubbing or edema SKIN - no rashes or suspicious lesions NEURO - alert and and oriented to person, place and situation, Muscle strength is 5/5 UE and LE flexors/extensors and in 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 Station maintained with eyes closed. CN II-XII intact. Objective Labs Result Diagrams: 08/01/19 22:20 08/01/19 22:20 Labs: Laboratory Results - last 24 hr 08/01/19 08/01/19 22:20 22:20 WBC 9.9 RBC 3.78 L Hgb 11.0 L Hct 32.4 L MCV 85.7 MCH 29.2 MCHC 34.0 RDW 12.9 Plt Count 338 Neut % (Auto) 53.8 Lymph % (Auto) 31.8 [place] % (Auto) 11.8 Eos % (Auto) 2.1 Baso % (Auto) 0.5 Neut # (Auto) 5300 Lymph # (Auto) 3100 [place] # (Auto) 1200 H Eos # (Auto) 200 Baso # (Auto) 100 Sodium 140 Potassium 2.8 L Chloride 119 H Carbon Dioxide 17 L BUN 7 Creatinine 0.50 L Estimated GFR > 60.0 BUN/Creatinine Ratio 14.0 Glucose 77 Calcium 6.5 L Total Bilirubin 0.5 AST 16 ALT 11 Alkaline Phosphatase 55 Total Protein 5.3 L Albumin 2.5 L Globulin 2.8 Albumin/Globulin Ratio 0.9 L Assessment & Plan Assessment and plan (1) Vision changes: Current visit: No Status: Acute (2) Atypical migraine: Current visit: No Status: Acute Assessment & Plan narrative: The pt is a previously healthy 23yo at 31w2d who presented with vision changes and cognitive changes, symptoms now completely resolved. Most likely due to complex migraine, however due to hypercoagulable state of cannot more serious neurological cause such as TIA or dural sinus thrombus. [facility] recommended imaging. Discussed at length with the pt this morning. Due to her no longer having any symptoms, the pt does not wish to pursue imaging at this time. Discussed risks if more serious cause not found. She has low concern for these. Discussed that if she leaves without imaging, she must return immediately with any return of symptoms. She is agreeable to this. At pts request, will discharge home without additional imaging completed, with strict return precautions. Pt with f/u next week in clinic. Also discussed avoiding high sugar foods for now, as this may in part have precipitated the migraine if this was the cause. Time Spent With Patient Time with patient: Greater than 35 minutes Quality VTE Deep Vein Thrombosis/Pulmonary Embolism Present on Admission: No
--- NOTE | 2019-08-02 08:56 | PC.NURSE ---
Day shift: Pt d/c'd by MD. Printed info on TIA's and discussed with Pt. Paperwork signed and all questions answered. NO new MD scrips. Pt has all personal belongings.
--- NOTE | 2019-08-02 09:11 | CM.DANOTE ---
DCP assessment: note: case received, EMR reviewed and see that pt was admitted last night to care of PCP: Dr. Neville for ? of TIA. Pt is currently . Dr. Neville saw here this morning and ok'd her for d/c to home and she left at 0830. Payer: [facility] Admission status: in review per UR RN
== END 2019-08-02 08:58 | disposition home or self-care (01) ==
LOC: ED 22:57 → AC 23:01
PROVIDERS: Admitting Provider Family Medicine; Emergency Provider Emergency Medicine; Family Provider Family Medicine; PCP Family Medicine; Referring Provider Emergency Medicine; Visit Provider Family Medicine
DX: G43.009 Migraine without aura, not intractable, without status migrainosus (principal); R29.818 Other symptoms and signs involving the nervous system; H53.9 Unspecified visual disturbance; Z33.1 Pregnant state, incidental; Z3A.31 31 weeks gestation of pregnancy
CPT/HCPCS: 59025; 80053; 81003; 85025; 96360; 99235; 99283; 99284; G0378

== ENCOUNTER 2019-08-16 18:00 | Emergency (ER) | payer OTHER, SELFPAY ==
[2019-08-16 18:04] VITALS: BP 124/69; PULSE 118; RESP 26; TEMP 37.1; O2SAT 98
--- NOTE | 2019-08-16 18:09 | DI.RAD.S_ITS ---
PROCEDURE: XR CHEST 2V INDICATIONS: congestion, cough, sob, OB CLEARED CHEST X RAY TECHNIQUE: 2 views of the chest were acquired. COMPARISON: [facility], , CHEST 1 VIEW, 07/13/2017, 23:34. FINDINGS: Surgical changes and devices: None. Lungs and pleura: Lungs are clear. No pleural effusions or pneumothorax. Mediastinum: Mediastinal contours are normal. Heart size is normal. Bones and chest wall: No suspicious bony abnormalities. Soft tissues appear unremarkable. IMPRESSION: No evidence acute pulmonary process. Dictated by: Montana Esqueda M.D. on 08/16/2019 at 18:38 Approved by: Montana Esqueda M.D. on 08/16/2019 at 18:38
[2019-08-16 18:50] LABS: Influenza A - CEPHEID Flu A NEGATIVE (NEGATIVE); Influenza B - CEPHEID Flu B NEGATIVE (NEGATIVE)
--- NOTE | 2019-08-16 19:19 | ED_ITS ---
HPI - General Adult General Chief complaint: Upper Respiratory Symptoms Stated complaint: COUGH BLOOD SOME SOB Time Seen by Provider: 08/16/19 18:19 Source: patient Mode of arrival: Ambulatory Limitations: no limitations History of Present Illness HPI narrative: Patient is a 23-year-old at 34 weeks EGA here for evaluation of several days of a cough that is nonproductive, subjective fevers at home. Has been using her daughter's albuterol inhaler without any improvement. Sore throat. She also states that she had some blood tinged sputum with the cough earlier today. No chest pain. She states that her main symptom is the cough. Has been doing [id number] Robitussin and other medications without any improvement. Was seen by her primary doctor couple days ago and had Sylvia Erickson prescribed her which she states she took 2 of them but did not help and has been taking them since. Was sent to the emergency department by her OB provider for chest x-ray in to ?be cleared ? Related Data Home Medications Medication Instructions Recorded Confirmed Mynatal 1 cap PO QDAY #0 03/03/17 08/02/19 Previous Rx's Medication Instructions Recorded benzonatate 100 mg capsule 100 mg PO TID PRN #20 cap 08/13/19 Allergies Allergy/AdvReac Type Severity Reaction Status Date / Time miconazole [From MONISTAT 3] AdvReac Mild Rash Verified 08/01/19 22:18 skin cleanser combination AdvReac Mild Redness of Verified 08/01/19 22:18 no.17 Skin [From MONISTAT 3] Review of Systems Constitutional Constitutional: Denies chills, Reports fatigue and Reports fever(s) ENT Ears, Nose, Mouth, and Throat: Reports sore throat Cardiovascular Cardiovascular: Denies chest pain, Denies edema and Reports dyspnea on exertion Respiratory Respiratory: Reports chest congestion, Reports cough and Reports dyspnea on exertion Gastrointestinal Gastrointestinal: Denies abdominal pain Comments: No abdominal cramping Genitourinary Genitourinary: Denies dysuria Integumentary/Breasts Skin/Breast: Denies lesions and Denies rash Neurologic Neurologic: Denies behavioral changes Psychiatric Psychiatric: Denies behavioral changes Endocrine Endocrine: Reports fatigue Hematologic/Lymphatic Hematologic/Lymphatic: Denies easy bleeding and Denies easy bruising Patient History Medical History Acne (Chronic 2014) 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 Father No problems noted. Grandfather Celiac disease Grandmother Cancer Mother Celiac disease Cancer Grandfather Heart attack Grandmother No problems noted. Sister Celiac disease Sister Celiac disease Social History marital status: number of children: 1 household members: spouse and children pets and animals: Yes (Cat) education level: college occupational status: employed seatbelt use: always helmet use: Yes water heater temp set < 120 deg: Yes working smoke detector in home: Yes fire extinguisher in home: No carbon monox detector in home: Yes firearms in home: Yes firearms unloaded and locked: Yes Smoking Status: Former smoker quit status: quit date established alcohol intake: never substance use type: does not use during the past year weight has: other well-balanced diet: daily or most days daily servings fruits/ve-4 caffeine: Yes (1-3 caffeine drinks per week, 1-3 soda/pop drinks per week.) eating out: 1-3 times/week Type(s) of exercise: additional additional social history: 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 Alcohol: None. Smoking Status: Former smoker alcohol intake frequency: 0-2 drinks per day Substance Use Type: does not use Exam Initial Vital Signs Initial Vital Signs: Vital Signs Temperature 98.8 F 08/16/19 18:04 Pulse Rate 118 H 08/16/19 18:04 Respiratory Rate 26 H 08/16/19 18:04 Blood Pressure 124/69 08/16/19 18:04 Pulse Oximetry 98 08/16/19 18:04 Const General: cooperative, comfortable and well developed Limitations: mental status not altered HENMT Head: normal to inspection and normocephalic Ears: TM's normal bilaterally Nose: external nose normal Mouth: oral mucosae normal Throat: posterior oropharynx normal Resp Effort & Inspection: normal respiratory effort Auscultation: clear to auscultation bilaterally Cardio Rate: tachycardic Rhythm: regular rhythm GI Palpation: soft Other: Gravid abdomen Skin Lesions: no lesions Rashes: no rashes Neuro General: alert and awake Cognition: normal cognition Speech: speech normal Extrem General: normal to inspection and capillary refill normal Psych Appearance: grossly normal and well kempt Course Orders Ordered: ED Orders 08/16/19 18:08 Flu test [Influenza A & B (PCR)] Stat 08/16/19 18:09 XR chest 2V Stat 08/16/19 19:28 Respiratory Panel (Film Array) Stat Discontinued Medications Albuterol (Ventolin) 2.5 mg INH NOW ONE Stop: 08/16/19 19:20 Last Admin: 08/16/19 20:07 Dose: Not Given Documented by: SHILPA Albuterol (Ventolin Hfa) 2 puff INH NOW ONE Stop: 08/16/19 20:08 Dexamethasone (Decadron) 10 mg PO NOW ONE Stop: 08/16/19 21:07 Last Admin: 08/16/19 21:38 Dose: 10 mg Documented by: MOE Vital Signs Vital signs: Vital Signs - 8 hr 08/16/19 18:04 08/16/19 20:32 08/16/19 21:43 Temperature 98.8 F 98.1 F Pulse Rate 118 H 97 H 112 H Respiratory Rate 26 H 18 20 Blood Pressure 124/69 Blood Pressure [Left Arm] 113/68 Pulse Oximetry 98 99 98 Medical Decision Making Lab Data Lab results reviewed: Yes I reviewed the patient's lab results. Labs: Lab Results 08/16/19 08/16/19 Range/Units 18:08 19:28 Chlamy pneumoniae PCR Not detected (Not Detect) Adenovirus (PCR) Not detected (Not Detect) B.parapertussis DNA PCR Not detected (Not Detect) Coronavirus OC43 (PCR) Not detected (Not Detect) Coronavirus HKU1 (PCR) Not detected (Not Detect) Coronavirus 229E (PCR) Not detected (Not Detect) Coronavirus NL63 (PCR) Not detected (Not Detect) Human Metapneumovir PCR Not detected (Not Detect) Influenza A (RT-PCR) Flu a negative (NEGATIVE) Influenza Type A (PCR) Not detected (Not Detect) Influenza B (RT-PCR) Flu b negative (NEGATIVE) Influenza Type B (PCR) Not detected (Not Detect) M. pneumoniae (PCR) Not detected (Not Detect) Parainfluenza 1 (PCR) Not detected (Not Detect) Parainfluenza 2 (PCR) Not detected (Not Detect) Parainfluenza 3 (PCR) Not detected (Not Detect) Parainfluenza 4 (PCR) Not detected (Not Detect) RSV (PCR) Not detected (Not Detect) Entero/Rhino (PCR) Detected H (Not Detect) Imaging Data Chest x-ray: Radiologist's Impression: [address] [address] XRay Report Signed Patient: Lesly Jimenez [facility]#: [id number] : 1995Acct:[id number] Age/Sex: 23 / FDate of Service: 08/16/19 Loc: ED Accession Number: [id number] Procedure: XR chest 2V Ordering Provider: Hossein Goss D.O. PROCEDURE: XR CHEST 2V INDICATIONS: congestion, cough, sob, OB CLEARED CHEST X RAY TECHNIQUE: 2 views of the chest were acquired. COMPARISON: [facility], CHEST 1 VIEW, 07/13/2017, 23:34. FINDINGS: Surgical changes and devices: None. Lungs and pleura: Lungs are clear. No pleural effusions or pneumothorax. Mediastinum: Mediastinal contours are normal. Heart size is normal. Bones and chest wall: No suspicious bony abnormalities. Soft tissues appear unremarkable. IMPRESSION: No evidence acute pulmonary process. Dictated by: Montana Esqueda M.D. on 08/16/2019 at 18:38 Approved by: Montana Esqueda M.D. on 08/16/2019 at 18:38 [facility] Narrative Medical decision making narrative: Patient not hypoxic, not tachypneic. Was tachycardic however is 34 weeks . She is not having any labor symptoms. Chest x-ray was negative. Her respiratory panel was positive for rhino virus. Low suspicion for COVID -19 given her symptoms and the positive rhino virus result. Was given 1 dose of Decadron here in the ER to see if this did not help some of her respiratory symptoms. She did not want an albuterol inhaler. States she had 1 at home and was not working. No indication for antibiotics. No indication for admission to the hospital. She was given return precautions and follow-up instructions. She expressed understanding agreement. Discharge Plan Departure Patient Disposition: Home Clinical Impression: Rhinovirus infection Discharge Date/Time: 08/16/19 21:50 Instructions: DI for Viral Upper Respiratory Infection -- Adult Activity Restrictions/Additional Instructions: Your respiratory panel today came back positive for rhino virus. This is an infection that does not require antibiotics. You can take Tylenol for any fevers and body aches. Keep all of your scheduled OB appointments. Recommend you contact your OB provider on Monday for further recommendations of treatment with your cough. Return to the emergency department for any new or worsening symptoms Prescriptions: No Action benzonatate [Tessalon Perles] 100 mg capsule 100 mg PO TID PRN (Reason: cough) Qty: 20 RF: 0 Mynatal 1 EACH capsule 1 cap PO QDAY Qty: 0 RF: 0 Referrals: Hedy Neville MD [Primary Care Provider] -
[2019-08-16 20:32] VITALS: BP 113/68; PULSE 97; RESP 18; O2SAT 99
[2019-08-16 20:47] LABS: Adenovirus Not Detected (Not Detect); Coronavirus 229E Not Detected (Not Detect)
[2019-08-16 20:48] LABS: Bordetella pertussis Not Detected (Not Detect); Chlamydophila pneumoniae Not Detected (Not Detect); Coronavirus HKU1 Not Detected (Not Detect); Coronavirus NL 63 Not Detected (Not Detect); Coronavirus OC43 Not Detected (Not Detect); Human Metapneumovirus Not Detected (Not Detect); Human Rhinovirus/Enterovirus Detected (Not Detect); Influenza A Not Detected (Not Detect); Influenza B Not Detected (Not Detect); Mycoplasma pneumoniae Not Detected (Not Detect); Parainfluenza Virus 1 Not Detected (Not Detect); Parainfluenza Virus 2 Not Detected (Not Detect); Parainfluenza Virus 3 Not Detected (Not Detect); Parainfluenza Virus 4 Not Detected (Not Detect); Respiratory Syncytial Virus Not Detected (Not Detect)
[2019-08-16] MEDS: DEXAMETHASONE 10 MG/ML VIAL PO (21:38)
[2019-08-16 21:43] VITALS: PULSE 112; RESP 20; TEMP 36.7; O2SAT 98
== END 2019-08-16 21:50 | disposition home or self-care (01) ==
PROVIDERS: Emergency Provider Emergency Medicine; Family Provider Family Medicine; PCP Family Medicine
DX: J06.9 Acute upper respiratory infection, unspecified (principal); B34.8 Other viral infections of unspecified site
CPT/HCPCS: 71046; 87502; 87633; 99283; J1100

== ENCOUNTER → 2019-08-27 15:13 | Outpatient (CLI) | payer OTHER, SELFPAY ==
[2019-08-02 01:01] VITALS: BMI 29.0
[2019-08-28 21:52] LABS: COVID19 Sendout Not Detected (Not Detected)
== END ==
PROVIDERS: Family Provider Family Medicine; PCP Family Medicine; Visit Provider Physician Assistant
DX: R05 Cough (principal)
CPT/HCPCS: 87635

== ENCOUNTER → 2019-08-30 16:10 | Outpatient (CLI) | payer OTHER, SELFPAY ==
[2019-08-02 01:01] VITALS: BMI 29.0
== END ==
PROVIDERS: Family Provider Family Medicine; PCP Family Medicine; Visit Provider Family Medicine
DX: Z34.90 Encounter for supervision of normal pregnancy, unspecified, unspecified trimester (principal)
CPT/HCPCS: 87081